=== PATIENT | male | born 1995 | race African-American/Black ===

== ENCOUNTER 2022-04-21 10:29 | Emergency (ER) | payer BC ==
[2022-04-21] MEDS ORDERED: Tetracaine 0.5% PF 4 ML BOT ONE (10:59)
[2022-04-21] MEDS ORDERED: Fluorescein Opthalmic Strip ONE (10:59)
== END 2022-04-21 12:12 | disposition home or self-care (01) ==
LOC: CSHERS 10:29
DX: H20.00 Unspecified acute and subacute iridocyclitis (principal)
CPT/HCPCS: 99283